=== PATIENT | male | born 1980 | race Hispanic/Latino ===

== ENCOUNTER 2018-01-17 15:06 | Emergency (ER) | payer OTHER ==
[2018-01-17 16:10] VITALS: BP 126/63
== END 2018-01-17 21:16 | disposition left against medical advice (07) ==
LOC: ED 15:06
DX: R22.31 Localized swelling, mass and lump, right upper limb (principal); Z53.21 Procedure and treatment not carried out due to patient leaving prior to being seen by health care provider